=== PATIENT | female | born 1945 | race Caucasian/White ===

== ENCOUNTER → 2017-01-29 | Outpatient (CLI) | payer MEDICARE, OTHER ==
[~2017-01-29] MED LIST: ASPIR-LOW81 MG PO; ASPIRIN E.C. 8181 MG PO; AVAPRO PO; CALCIUM CARBONATE PO; CALTRATE 600 +1 TAB PO; FOSAMAX PO; HUMALOG100 U/ML SC; INSULIN HUMA100 U/ML; LANTUS100 U/ML SQ; LEVOTHYROXIN0.025 MG PO; LIDODERM PATCH TP; MEVACOR PO; NEURONTIN100 MG PO; NEURONTIN600 MG/TAB PO; PERCOCET 325 MG1 TA2 PO; SYNTHROID0.075 MG/T PO; VITAMIN D32000 IU PO; ZOFRAN ODT4 MG PO; forteo; lovastatin
== END ==
LOC: MC.RAD 09:58
DX: Z12.31 Encounter for screening mammogram for malignant neoplasm of breast (principal)

== ENCOUNTER → 2017-04-10 | Outpatient (CLI) | payer MEDICARE, OTHER | LOC: COL.VAS 09:00 | DX: I73.9 Peripheral vascular disease, unspecified (principal) ==

== ENCOUNTER → 2018-09-25 | Outpatient (CLI) | payer MEDICARE, OTHER | LOC: SUN.DIA 14:01 | DX: E10.40 Type 1 diabetes mellitus with diabetic neuropathy, unspecified (principal); E78.5 Hyperlipidemia, unspecified; I10 Essential (primary) hypertension | CPT/HCPCS: G0108 ==

== ENCOUNTER → 2019-01-03 | Outpatient (CLI) | payer MEDICARE, OTHER ==
[~2019-01-03] MED LIST changes: +AMBIEN 5MG TABLE5 MG PO; +CITRACAL + D CA1 TAB; +DOXYCYCLINE 10100 MG PO; +MEVACOR40 MG PO
== END ==
LOC: COL.CARD 12:00
DX: R42 Dizziness and giddiness (principal)

== ENCOUNTER 2019-01-05 13:09 | Emergency (ER) | payer MEDICARE, OTHER ==
[~2019-01-05] VITALS: Ht 154.9 cm; Wt 71.8 kg
[~2019-01-05 13:09] MED LIST changes: -AMBIEN 5MG TABLE5 MG PO; -CITRACAL + D CA1 TAB; -DOXYCYCLINE 10100 MG PO; -MEVACOR40 MG PO
[2019-01-05 13:35] VITALS: TEMP 98.4
[2019-01-05] MEDS ORDERED: DOXYCYCLINE 10100 MG PO (16:05)
[2019-01-05 16:14] VITALS: BP 117/68; PULSE 75
[2019-01-05] MEDS ORDERED: MEVACOR40 MG PO (16:19)
[2019-01-05] MEDS ORDERED: CITRACAL + D CA1 TAB (16:20)
[2019-01-05] MEDS ORDERED: AMBIEN 5MG TABLE5 MG PO (16:21)
== END 2019-01-05 16:40 | disposition home or self-care (01) ==
LOC: COL.ER 13:09
DX: S41.111A Laceration without foreign body of right upper arm, initial encounter (principal); E11.9 Type 2 diabetes mellitus without complications; Z79.4 Long term (current) use of insulin; Z79.82 Long term (current) use of aspirin; W22.8XXA Striking against or struck by other objects, initial encounter; Y92.009 Unspecified place in unspecified non-institutional (private) residence as the place of occurrence of the external cause

== ENCOUNTER → 2019-07-02 | Outpatient (CLI) | payer MEDICARE, OTHER ==
[~2019-07-02] MED LIST changes: +AMBIEN 5MG TABLE5 MG PO; +CITRACAL + D CA1 TAB; +DOXYCYCLINE 10100 MG PO; +MEVACOR40 MG PO
== END ==
LOC: COL.RAD 13:05
DX: G31.9 Degenerative disease of nervous system, unspecified (principal); I67.82 Cerebral ischemia; I63.81 Other cerebral infarction due to occlusion or stenosis of small artery

== ENCOUNTER → 2019-07-15 | Outpatient (CLI) | payer MEDICARE, OTHER | LOC: COL.LAB 13:22 | DX: I63.81 Other cerebral infarction due to occlusion or stenosis of small artery (principal) ==

== ENCOUNTER → 2019-11-20 | Outpatient (CLI) | payer MEDICARE, OTHER | LOC: COL.VAS 12:36 | DX: R55 Syncope and collapse (principal) ==

== ENCOUNTER 2020-01-12 07:50 | Outpatient (CLI) | payer MEDICARE, OTHER ==
[~2020-01-12] VITALS: Ht 154.9 cm; Wt 73.0 kg
[2020-01-12 08:05] VITALS: BP 161/74; PULSE 74; TEMP 97.3
[2020-01-12] MEDS ORDERED: LANTUS100 U/ML SQ (08:28)
[2020-01-12] MEDS ORDERED: NOVOLOG 100U100 U/M1 SQ (08:29)
[2020-01-12 11:10] VITALS: BP 152/86; PULSE 67
--- NOTE | 2020-01-12 11:10 | NUR ---
DC instructions reviewed with pt. She expresses understanding. INT DC'd with catheter intact, and bleeding controlled at site. She is assisted out to 's car by wheelchair with personal belongings.
== END 2020-01-12 11:10 | disposition home or self-care (01) ==
LOC: COL.CAR 07:50
DX: R55 Syncope and collapse (principal); E11.42 Type 2 diabetes mellitus with diabetic polyneuropathy; Z88.0 Allergy status to penicillin; Z88.1 Allergy status to other antibiotic agents; G31.84 Mild cognitive impairment of uncertain or unknown etiology

== ENCOUNTER → 2020-04-01 | Outpatient (CLI) | payer MEDICARE, OTHER ==
[~2020-04-01] MED LIST changes: +NOVOLOG 100U100 U/M1 SQ
== END ==
LOC: COL.RAD 10:59
DX: I67.82 Cerebral ischemia (principal); W19.XXXA Unspecified fall, initial encounter

== ENCOUNTER 2020-10-29 09:32 | Emergency (ER) | payer MEDICARE, OTHER ==
[~2020-10-29] VITALS: Ht 152.4 cm; Wt 72.7 kg
[2020-10-29 09:39] VITALS: TEMP 97.8
[2020-10-29] MEDS ORDERED: PERCOCET 325 MG1 TA2 PO (10:29)
[2020-10-29 11:05] VITALS: BP 138/67; PULSE 83
== END 2020-10-29 11:05 | disposition home or self-care (01) ==
LOC: COL.ER 09:32
DX: S52.601A Unspecified fracture of lower end of right ulna, initial encounter for closed fracture (principal); S52.501A Unspecified fracture of the lower end of right radius, initial encounter for closed fracture; I10 Essential (primary) hypertension; E78.5 Hyperlipidemia, unspecified; E11.40 Type 2 diabetes mellitus with diabetic neuropathy, unspecified; Z79.4 Long term (current) use of insulin; Z79.899 Other long term (current) drug therapy; W06.XXXA Fall from bed, initial encounter

== ENCOUNTER 2021-04-24 17:34 | Inpatient (IN) | payer MEDICARE, OTHER ==
[~2021-04-24] VITALS: Ht 152.4 cm; Wt 73.0 kg
[2021-04-24 18:21] LABS: HEMOGLOBIN 12.7 g/dl (12.5-16.0); MEAN CELL VOLUME 92 fl (80.0-100.0); MEAN CORPUSCULAR HEMOGLOBIN 32 pg (27-31); MEAN CORPUSCULAR HGB CONC 35 g/dl (33.0-37.0); MEAN PLATELET VOLUME 10.3 fl (7.4-10.4); PLATELET COUNT 216 K/mm3 (130-400); RED BLOOD COUNT 3.99 M/mm3 (4.10-5.30); REDCELL DISTRIBUTION WIDTH-CV 12.2 % (11.5-14.5)
[2021-04-24 18:23] LABS: HEMATOCRIT 36.6 % (37.0-47.0)
[2021-04-24 18:28] LABS: INR 1.2 (0.8-3.0); PROTHROMBIN TIME 12.9 SECONDS (9.7-12.8)
[2021-04-24 18:39] LABS: ALBUMIN 3.7 gm/dL (3.4-4.8); BILIRUBIN,TOTAL 0.3 mg/dL (0.2-1.2); CALCIUM 9.2 mg/dL (8.4-10.2); CREATININE, serum 0.83 mg/dL (0.57-1.11); POTASSIUM 3.7 mmol/L (3.5-4.5); TOTAL PROTEIN 7.3 gm/dL (6.2-8.1)
[2021-04-24 18:45] LABS: TROPONIN-I 0.014 ng/mL (0.00-0.033)
[2021-04-24 18:46] LABS: BAND 5 % (0-10); BASOPHIL 1 % (0-2); LYMPHOCYTE 17 % (20.0-51.0); NEUTROPHILS 59 % (42.0-75.2); PLATELET ESTIMATE NORMAL (NORMAL)
[2021-04-24 21:09] LABS: COLLECTION METHOD CLEAN CATCH
[2021-04-24 21:28] LABS: PH 5 (5-8); SQUAMOUS EPITHELIAL 0-2 /hpf (0-10); URINE APPEARANCE Hazy (CLEAR/HAZY); URINE BACTERIA Rare /hpf (NONE SEEN); URINE BILIRUBIN Negative (NEGATIVE); URINE BLOOD 1+ (NEGATIVE); URINE COLOR Yellow (YELLOW); URINE GLUCOSE 1+ (NEGATIVE); URINE KETONE Negative (NEGATIVE); URINE LEUKOCYTE ESTERASE 1+ (NEGATIVE); URINE NITRATE Negative (NEGATIVE); URINE PROTEIN(semi-quant) Negative (NEGATIVE); URINE RBC 0-2 /hpf (0-2); URINE UROBILINOGEN Negative (NEGATIVE)
[2021-04-24] MEDS ORDERED: ARICEPT10 MG PO (22:22)
[2021-04-24] MEDS ORDERED: AMBIEN 10MG10 MG PO (22:22)
[2021-04-24] MEDS ORDERED: AVAPRO TAB150 MG/TAB PO (22:27)
[2021-04-24 23:24] LABS: C-REACTIVE PROTEIN 4.1 mg/dL (0.00-0.50); MAGNESIUM 1.9 mg/dL (1.6-2.6)
[2021-04-24 23:41] VITALS: BP 141/69; PULSE 90; TEMP 98.5
[2021-04-24 23:45] LABS: TSH w REFLEX 2.248 uIU/mL (0.350-4.940)
[2021-04-25 03:59] VITALS: BP 131/57; PULSE 84; TEMP 99.1
--- NOTE | 2021-04-25 06:50 | NUR ---
PT ARRIVED TO THE MEDICAL UNIT AT 2330HRS. PT A&O X4; BUT SEEMED TO HAVE SOME CONFUSION TO HER HOME MEDS AND A HARD TIME REMEMBERING HER 'S PHONE NUMBER. PT VERY TIRED WHEN SHE GOT TO THE UNIT. ADMISSION ASSESSMENTS COMPLETE. PT DENIED PAIN, PALPITATIONS, SOB OR DIZZINESS AT THIS TIME. PT RESTING IN BED. PT STATES SHE HAS NO OTHER NEEDS AT THIS TIME. CALL LIGHT WITHIN REACH.
[2021-04-25 06:58] LABS: HEMOGLOBIN 11.3 g/dl (12.5-16.0); MEAN CELL VOLUME 92 fl (80.0-100.0); MEAN CORPUSCULAR HEMOGLOBIN 32 pg (27-31); MEAN CORPUSCULAR HGB CONC 34 g/dl (33.0-37.0); MEAN PLATELET VOLUME 10.6 fl (7.4-10.4); PLATELET COUNT 185 K/mm3 (130-400); RED BLOOD COUNT 3.58 M/mm3 (4.10-5.30); REDCELL DISTRIBUTION WIDTH-CV 12.3 % (11.5-14.5)
[2021-04-25 07:08] LABS: BILIRUBIN,TOTAL 0.3 mg/dL (0.2-1.2); CALCIUM 8.4 mg/dL (8.4-10.2); CREATININE, serum 0.74 mg/dL (0.57-1.11); POTASSIUM 3.6 mmol/L (3.5-4.5)
[2021-04-25 08:09] VITALS: BP 134/62; PULSE 90; TEMP 99.5
[2021-04-25 08:17] LABS: BAND 1 % (0-10); EOSINOPHIL 1 % (0-4); LYMPHOCYTE 21 % (20.0-51.0); NEUTROPHILS 57 % (42.0-75.2)
[2021-04-25 08:18] LABS: PLATELET ESTIMATE NORMAL (NORMAL)
[2021-04-25 12:37] VITALS: BP 143/71; PULSE 88; TEMP 99.6
--- NOTE | 2021-04-25 13:17 | NUR ---
The patient is COVID positive. MARGARETTE attempted to contact the patient to discuss discharge plan. The patient did not answer. MARGARETTE then attempted to contact the patient's , Nick (ph#[phone]), to complete intake. He did not answer. MARGARETTE left him a voicemail. OT is recommending IPR. Dr. Gonzales notified MARGARETTE that he has placed a IPR consult. Awaiting screen.
[2021-04-25 17:10] VITALS: BP 132/59; PULSE 81; TEMP 98.7
[2021-04-25 20:32] VITALS: BP 132/55; PULSE 83; TEMP 99.1
[2021-04-25 23:12] VITALS: BP 113/76; PULSE 78; TEMP 99.1
--- NOTE | 2021-04-25 23:15 | NUR ---
PT IS PLEASANT AND COOPERATIVE. TOOK ALL MEDICATIONS, STATED SHE FELT A BIT WOOZY AND WOULD LIKE TO CHECK BLOOD SUGAR AGAIN. BLOOD SUGAR WAS ORIGINALLY 129, WHEN THIS RN RECHECKED BGS IT HAD DROPPED TO 55. GAVE SOME ORANGE JUICE AND CALLED ROCKY HOOKER. ROCKY HOOKER GAVE ORDER FOR D5NS TO RUN AT 60 ML/HR. THIS RN ATTEMPTED TO START BUT IV WAS NOT USABLE. HAD HOUSE START NEW IV SITE. GOT D5 RUNNING AT 60 ML/HR. RECHECK OF BGS CAME BACK AT 95. WILL CONTINUE TO MONITOR. THIS RN GOT UPDATE FROM DAUGHTER IN LAW, RYAN, WHO STATES SHE WORKS IN HOSPITALS [place]. HER AND HER , REN WHO IS PATIENT'S SON ARE CONCERNED ABOUT CARE BEING GIVEN BY JANICE. DAUGHTER IN LAW STATES THAT THINKS HE IS DOING JUST FINE MANAGING HER DIABETES AND WAS AGITATED AT THE FACT THAT HE COULD NOT GET AN UPDATE DURING SHIFT CHANGE. (PT CALLED AT 1840 FOR UPDATE) THIS RN ATTEMPTED TO CONTACT JANICE AT APPROXIMATELY 2000. THERE WAS NO ANSWER. DAUGHTER IN LAW STATED THAT JANICE WAS CONSIDERING DRIVING TO HOSPITAL AND MAKING PT GO HOME WITH HIM IF SHE IS DOING BETTER. DAUGHTER IN LAW TOLD HIM THAT HE SHOULD WAIT TO MAKE SURE SHE IS OK, AND THAT HE JUST TESTED POSITIVE FOR COVID AND IS CONSIDERED STILL CONTAGIOUS AND THAT HE SHOULD QUARANTINE. DAUGHTER IN LAW STATED THAT THE CONVERSATION DID NOT GO WELL. DAUGHTER IN LAW PHONE NUMBER IS [phone]. STATES THAT IF SHE DOES NOT ANSWER THAT SHE WILL CALL BACK SOON SHE CAN, BUT MAY TAKE FEW MINUTES DUE WORK AND THAT REN, PT SON, IS A ASSEMBLY CLEANER AND HARDER TO GET A HOLD OF.
--- NOTE | 2021-04-26 00:39 | NUR ---
THIS RN CONTACTED ROCKY HOOKER ABOUT BGS OF 95 AT MIDNIGHT CHECKS. MORRO STATED TO KEEP PT ON D5NS AT 60ML/HR. WILL KEEP PATIENT ON Q4 BLOOD GLUCOSE CHECKS.
[2021-04-26 04:01] VITALS: BP 135/47; PULSE 79; TEMP 97.4
--- NOTE | 2021-04-26 04:22 | NUR ---
THIS RN GOT 0400 BGS OF 262 FOR PATIENT. THIS RN CALLED ROCKY HOOKER ABOUT RESULTS. D5 FLUID D/C. THIS RN REMOVED FLUIDS IMMEDIATELY.
--- NOTE | 2021-04-26 06:18 | NUR ---
PT HAD AN UNEVENTFUL NIGHT, PT SLEPT ALL NIGHT WITH NO COMPLAINTS. PT BLOOD SUGAR INCREASED FROM 55 TO 95 TO 262. D5NS DISCONTINUED. WILL CONTINUE TO MONITOR. PT STATES THAT HER BLOOD SUGAR IS VERY SENSITIVE. WHEN TAKING MORNING MEDS, PT SAT UP BUT COULD NOT REMAIN UPRIGHT IN SITTED POSITION TO TAKE MEDICATIONS, PT LEANED BACKWARDS AND NEEDED HELP GETTING BACK IN UPRIGHT POSITION. CALL LIGHT IN REACH, NO OTHER NEEDS AT THIS TIME.
[2021-04-26 07:50] LABS: HEMOGLOBIN 11.7 g/dl (12.5-16.0); MEAN CELL VOLUME 94 fl (80.0-100.0); MEAN CORPUSCULAR HEMOGLOBIN 32 pg (27-31); MEAN CORPUSCULAR HGB CONC 34 g/dl (33.0-37.0); MEAN PLATELET VOLUME 10.7 fl (7.4-10.4); PLATELET COUNT 165 K/mm3 (130-400); RED BLOOD COUNT 3.63 M/mm3 (4.10-5.30); REDCELL DISTRIBUTION WIDTH-CV 12.5 % (11.5-14.5)
[2021-04-26 07:51] LABS: ALBUMIN 2.9 gm/dL (3.4-4.8); BILIRUBIN,TOTAL 0.2 mg/dL (0.2-1.2); CALCIUM 8.6 mg/dL (8.4-10.2); CREATININE, serum 0.81 mg/dL (0.57-1.11); POTASSIUM 4.4 mmol/L (3.5-4.5); TOTAL PROTEIN 5.7 gm/dL (6.2-8.1)
[2021-04-26 07:53] LABS: HEMATOCRIT 34.2 % (37.0-47.0)
[2021-04-26 08:59] VITALS: BP 113/76; PULSE 75; TEMP 98.6
[2021-04-26 09:10] LABS: BAND 13 % (0-10); LYMPHOCYTE 31 % (20.0-51.0); NEUTROPHILS 38 % (42.0-75.2); PLATELET ESTIMATE NORMAL (NORMAL)
[2021-04-26] MEDS ORDERED: RT Albuterol HFA MDI IH (11:06)
[2021-04-26] MEDS ORDERED: NOVOLOG 100U100 U/M1 SQ (11:07)
[2021-04-26] MEDS ORDERED: LEVEMIR100 U/ML SQ (11:07)
[2021-04-26] MEDS ORDERED: NEURONTIN300 MG/CAP PO (11:07)
[2021-04-26] MEDS ORDERED: OMNICEF 300MG300 MG PO (11:16)
--- NOTE | 2021-04-26 11:34 | NUR ---
Magaly, with IPR, reports that she has accepted the patient. The patient is to discharge today, 04/26, to [facility]. MARGARETTE contacted and updated the patient's , Nick. Nick is in agreement to the plan. He had no other questions for SW. No additional needs at this time.
[2021-04-26 12:03] VITALS: BP 104/51; PULSE 77; TEMP 98.5
== END 2021-04-26 14:00 | DRG 178 ==
LOC: COL.ER 17:34 → MEDICAL 21:51
PROVIDERS: Nurse Practitioner Family; Physician Assistant; ADMIT Internal Medicine
DX: U07.1 COVID-19 (principal); N39.0 Urinary tract infection, site not specified; I10 Essential (primary) hypertension; I49.3 Ventricular premature depolarization; I25.10 Atherosclerotic heart disease of native coronary artery without angina pectoris; E10.40 Type 1 diabetes mellitus with diabetic neuropathy, unspecified; E10.43 Type 1 diabetes mellitus with diabetic autonomic (poly)neuropathy; E10.649 Type 1 diabetes mellitus with hypoglycemia without coma; E10.319 Type 1 diabetes mellitus with unspecified diabetic retinopathy without macular edema; K31.84 Gastroparesis; E87.6 Hypokalemia; M81.0 Age-related osteoporosis without current pathological fracture; E03.9 Hypothyroidism, unspecified; E78.5 Hyperlipidemia, unspecified; R53.81 Other malaise; H40.9 Unspecified glaucoma; Z79.82 Long term (current) use of aspirin; Z79.4 Long term (current) use of insulin; Z86.73 Personal history of transient ischemic attack (TIA), and cerebral infarction without residual deficits; Z88.0 Allergy status to penicillin; Z88.5 Allergy status to narcotic agent; F03.90 Unspecified dementia, unspecified severity, without behavioral disturbance, psychotic disturbance, mood disturbance, and anxiety
CPT/HCPCS: 99232-AI; 99239; J0696; J1610; J1650; J1815; J7042; J7120

== ENCOUNTER 2021-04-26 10:50 | Inpatient (IN) | payer MEDICARE, OTHER ==
[~2021-04-26] VITALS: Ht 152.4 cm; Wt 72.1 kg
[~2021-04-26 10:50] MED LIST changes: +AMBIEN 10MG10 MG PO; +ARICEPT10 MG PO; +AVAPRO TAB150 MG/TAB PO
[2021-04-26] MEDS ORDERED: RT Albuterol HFA MDI IH (11:06)
[2021-04-26] MEDS ORDERED: LEVEMIR100 U/ML SQ (11:07)
[2021-04-26] MEDS ORDERED: NOVOLOG 100U100 U/M1 SQ (11:07)
[2021-04-26] MEDS ORDERED: NEURONTIN300 MG/CAP PO (11:07)
[2021-04-26] MEDS ORDERED: OMNICEF 300MG300 MG PO (11:16)
[2021-04-26 17:23] VITALS: BP 129/55; PULSE 82; TEMP 97.6
[2021-04-26 20:28] VITALS: BP 138/50; PULSE 83; TEMP 99.2
[2021-04-27 00:43] VITALS: BP 140/54; PULSE 86; TEMP 99.7
[2021-04-27 04:46] VITALS: BP 147/55; PULSE 85; TEMP 98.9
--- NOTE | 2021-04-27 06:27 | NUR ---
PT HAD AN UNEVENTFUL NIGHT. PT SLEPT ALL NIGHT, STILL ON RA. PT WENT TO RESTROOM, NO SIGNS OF CONTINUED BLEEDING, PT DENIES PAIN. CALL LIGHT IN REACH. ALL NEEDS MET.
[2021-04-27 08:16] VITALS: BP 156/64; PULSE 86; TEMP 99.5
--- NOTE | 2021-04-27 09:23 | NUR ---
PT PLEASANT, AOX4, SPEECH THERAPY REPORTS PT SEEING "LOTS OF PEOPLE IN MY ROOM CLEANING UP AND THROWING THINGS AWAY", THIS IS AN UNLIKELY EVENT. PT REPORTS PAIN 5/10 IN BLE AND DESCRIBES IT NEUROPATHY PAIN, MEDICATIONS GIVEN, ASSESSMENT PERFORMED, UPDATED ON PT STATUS, BREAKFAST BROUGHT IN, NO OTHER NEEDS
--- NOTE | 2021-04-27 13:05 | NUR ---
HECTOR HIDALGO NOTIFIED OF 409 BS, ORDERED TO GIVE 10 UNITS REGULAR INSULIN IV AND RECHECK IN 30MIN AND HOLD SLIDING SCALE. INSULIN GIVEN AND RECHECK SUGAR WAS 339, HECTOR HIDALGO UPDATED AND DARLENE ORDERED TO GIVE SLIDING SCALE WITH PT LUNCH.
--- NOTE | 2021-04-27 13:11 | NUR ---
LEILA PT'S SON UPDATED ON PT STATUS.
--- NOTE | 2021-04-27 14:01 | NUR ---
Reviewed Team conference note w/ pt. Told her since she had just admitted yesterday afternoon & therapists were working on doing their evaluations, there was not alot of information. Informed her the team will evaluate again next Sunday. She stated she understood & agreed w/ the plan.
--- NOTE | 2021-04-27 16:17 | NUR ---
Attempt made to contact the patient's Nick via phone and was unsuccessful. Message left. Second attempt to speak with the patient via her room phone and was unsuccessful. SW will attempt to contact the patient again tomorrow to complete intake.
[2021-04-27 17:05] VITALS: BP 127/61; PULSE 80; TEMP 98.6
--- NOTE | 2021-04-27 17:48 | NUR ---
INC BS DURING THE DAY, PT AOX4, MEDICATIONS GIVEN, UNEVENTFUL SHIFT OTHER THAN INC SUGARS, DENIES PAIN, ON RA, NO OTHER NEEDS
--- NOTE | 2021-04-27 23:29 | NUR ---
PT IS LAYING IN BED, ASSESSMENT COMPLETE. PT ALERT AND ORIENTATED. PT INQUIRED INTREST IN INSULIN LEVELS AND MEDICATIONS GIVEN. CALL LIGHT IN REACH. ALL NEEDS MET.
[2021-04-28 05:10] VITALS: BP 140/55; PULSE 81; TEMP 99
[2021-04-28 05:42] LABS: BASO % 0.3 % (0.0-2.0); EOS # 0.1 K/mm3 (0.0-0.7); EOS % 1.8 % (0.0-4.0); GRAN # 1.8 K/mm3 (1.4-6.5); GRAN % 52.5 % (42.2-75.2); HEMOGLOBIN 11.5 g/dl (12.5-16.0); LYMPH # 1.1 K/mm3 (1.2-3.4); LYMPH % 32.5 % (20.0-51.0); MEAN CELL VOLUME 94 fl (80.0-100.0); MEAN CORPUSCULAR HEMOGLOBIN 32 pg (27-31); MEAN CORPUSCULAR HGB CONC 34 g/dl (33.0-37.0); MEAN PLATELET VOLUME 10.5 fl (7.4-10.4); MONO # 0.4 K/mm3 (0.1-0.6); MONO % 12.9 % (1.7-9.3); PLATELET COUNT 165 K/mm3 (130-400); RED BLOOD COUNT 3.62 M/mm3 (4.10-5.30)
--- NOTE | 2021-04-28 05:47 | NUR ---
PT HAD AN UNEVENTFUL NIGHT. PT REMAINED ON ROOM AIR, SLEPT ALL NIGHT. DENIES PAIN, DID NOT WANT TO ATTEMPT MOVEMENT FOR IPR QUALITY MEASURES, STATED SHE WAS TOO SLEEPY. PT REQUESTED LIGHTS OFF AND BE ABLE TO RETURN TO SLEEP. CALL LIGHT IN REACH, ALL NEEDS MET.
[2021-04-28 06:01] LABS: CALCIUM 8.6 mg/dL (8.4-10.2); CREATININE, serum 0.82 mg/dL (0.57-1.11); MAGNESIUM 1.7 mg/dL (1.6-2.6); POTASSIUM 4.2 mmol/L (3.5-4.5)
--- NOTE | 2021-04-28 09:44 | NUR ---
PT PLEASANT, AOX4, BREAKFAST BROUGHT IN FOR PT, MEDICATIONS GIVEN, ASSESSMENT PERFORMED, MEDICATIONS GIVEN, NO OTHER NEEDS
--- NOTE | 2021-04-28 14:00 | NUR ---
Due to patient being Covid + patient was contacted via room phone to complete intake. Patient reports that she lives at home with her Nick ([phone]). Patient reports that she is fully independent with her activities of daily living at home and does not utilize any DME to assist with mobility. Patient reports to no oxygen needs at home. PCP is Dr. Mata and she utilizes [facility] for medication needs. Patient states she does have a DPOA-HC established and that Dr. Mata has a copy of it on file. Permission was given for me to call and request a copy of it. Patient is planning on returning home once ready for discharge. Patient reports that her Nick is doing ok at home. Educated the patient on the role of social media community manager.Dr. Mata's office is contacted an agree's to fax over a copy of the patient's DPOA-HC form. Discharge plan: Home pending PT/OT rec's
--- NOTE | 2021-04-28 14:57 | NUR ---
PT BS ELEVATED, PA NOTIFIED, ORDERED TO GIVE 10 UNITS IV INSULIN, EDUCATED PT ON DECISION AND MEDICATION GIVEN, WILL REASSESS IN 30MIN
[2021-04-28 15:47] VITALS: BP 130/61; PULSE 88; TEMP 98.4
--- NOTE | 2021-04-28 17:15 | NUR ---
PT PLEASANT, AOX4, INVOLVED WITH DISCUSSION OF BS, PT WORKING [employer]ER[facility] DURING THE DAY, EATING WELL, DENIES S/S OF COVID, NO OTHER NEEDS
--- NOTE | 2021-04-28 23:52 | NUR ---
Patient assessed around 2024. Had gotten up to go to the bathroom on own when bed alarm sounded. Denies pain and discomfort. Denies SOB and dyspnea. On room air. LS CTA. Peripheral INT to right forearm. Assisted patient with calling . Voices no further questions, needs, or concerns at this time. In bed with call light within reach. Bed alarm on.
[2021-04-29] VITALS (7 sets, daily range): BP systolic 98–146; BP diastolic 46–62; PULSE 55–90; TEMP 98.5–101.3
--- NOTE | 2021-04-29 05:39 | NUR ---
Patient has denied pain and discomfort this shift. Unsteady this morning, used bedside commode. Voices no questions, needs, or concerns at this time. In bed with call light within reach. Bed alarm on.
--- NOTE | 2021-04-29 08:00 | NUR ---
BREAKFAST BROUGHT IN WITH PT, PT APPEARS DROWSY, AOX3, PT COULD NOT IDENTIFY LOCATION WITHOUT PROMPTING, PT ASSESSMENT PERFORMED, PT UL COARSE, PT CHOKED ON PILLS WHEN TAKING THEM, RECOVERED, NO OTHER NEEDS
--- NOTE | 2021-04-29 09:30 | NUR ---
GAGE ROSENBERG CALLED FOR ME INTO PT ROOM, PT ON SHOWER BENCH, PALE, CLAMMY, RESPONSIVE TO PHYSICAL STIMULATION, VITALS OBTAINED, BS OBTAINED, PT THEN HAD X3 EMESIS YELLOW IN COLOR, REPORTING NAUSEA AND DIZZINESS. PT LETHARGIC BUT ANSWERED ORIENTATION QUESTIONS APPROPRIATELY AND REQUIRED MULTIPLE PROMPTS TO ANSWER QUESTIONS, BP LOW, SHAREE HIDALGO NOTIFIED, PULSE RATE ON DYNAMAP BEGAN TO READ HR FROM 25-30, CAROTID PULSE PALPATED, DYNAMAP HR INC TO 55 AND PT BECAME MORE ALERT, SHAREE HIDALGO CAME IN TO ASSESS PT, BOLUS ORDERED AND STARTED WHILE PT ON SHOWER BENCH, ZOFRAN ORDERED AND GIVEN, PT THEN REPORTED NEEDING TO HAVE A BM, ASSISTED TO TOILET, AMBULATION CONSISTENT WITH PAST AMBULATION, PT DID NOT HAVE BM, PT ASSISTED BACK TO BED WITH WALKER. BOLUS FINISHED INFUSING, BP REASSESSED AND HIGHER, SHAREE HIDALGO NOTIFIED. PT STILL DROWSY BUT AROUSES TO VERBAL STIMULATION/COMMANDS. NO NEW ORDERS AT THIS TIME.
[2021-04-29 11:00] LABS: BASO % 0.3 % (0.0-2.0); EOS % 0.3 % (0.0-4.0); GRAN # 2.4 K/mm3 (1.4-6.5); GRAN % 73.3 % (42.2-75.2); HEMOGLOBIN 11.9 g/dl (12.5-16.0); LYMPH # 0.5 K/mm3 (1.2-3.4); LYMPH % 15.8 % (20.0-51.0); MEAN CELL VOLUME 91 fl (80.0-100.0); MEAN CORPUSCULAR HEMOGLOBIN 32 pg (27-31); MEAN CORPUSCULAR HGB CONC 35 g/dl (33.0-37.0); MEAN PLATELET VOLUME 10.7 fl (7.4-10.4); MONO # 0.3 K/mm3 (0.1-0.6); PLATELET COUNT 161 K/mm3 (130-400); RED BLOOD COUNT 3.77 M/mm3 (4.10-5.30)
[2021-04-29 11:01] LABS: HEMATOCRIT 34.4 % (37.0-47.0)
[2021-04-29 11:16] LABS: BILIRUBIN,TOTAL 0.4 mg/dL (0.2-1.2); CALCIUM 8.2 mg/dL (8.4-10.2); CREATININE, serum 0.91 mg/dL (0.57-1.11); MAGNESIUM 1.7 mg/dL (1.6-2.6); POTASSIUM 4.1 mmol/L (3.5-4.5); TOTAL PROTEIN 6.3 gm/dL (6.2-8.1)
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
--- NOTE | 2021-04-29 12:10 | NUR ---
CT TAKING PT OFF FLOOR FOR HEAD CT VIA WHEELCHAIR
--- NOTE | 2021-04-29 12:33 | NUR ---
PT BACK IN ROOM AND SLEEPING IN HER BED
--- NOTE | 2021-04-29 14:14 | NUR ---
Admission QIM scores were reviewed by the team. Code of 6 chosen for eating was determined by team discussion to be the most usual performance for this patient during the assessment period. Code of 3 for sit to stand was determined by team discussion to be the most usual performance for this patient during the assessment period.--Magaly Leonard, PD
--- NOTE | 2021-04-29 18:23 | NUR ---
PT PLEASANT, AOX4, LETHARGIC MAJORITY OF TODAY, MORE ALERT AT DINNER TIME, MEDICATIONS GIVEN, INSULIN GIVEN, NO OTHER NEEDS
--- NOTE | 2021-04-29 23:26 | NUR ---
Patient assessed around 2019. Alert and oriented at this time, but does occasionally have confusion, but easily redirected. Denies having pain and discomfort. Temp 101.3. Given PRN APAP, recheck 100.5. Updated ROCKY Osuna. Patient resting in bed with call light within reach. Bed alarm on.
[2021-04-30] VITALS (7 sets, daily range): BP systolic 117–147; BP diastolic 43–66; PULSE 76–103; TEMP 98.5–102.1
[2021-04-30 00:04] LABS: BASO % 0.3 % (0.0-2.0); EOS % 0.3 % (0.0-4.0); GRAN % 57.5 % (42.2-75.2); HEMOGLOBIN 10.7 g/dl (12.5-16.0); LYMPH # 1.1 K/mm3 (1.2-3.4); MEAN CELL VOLUME 91 fl (80.0-100.0); MEAN CORPUSCULAR HEMOGLOBIN 31 pg (27-31); MEAN CORPUSCULAR HGB CONC 35 g/dl (33.0-37.0); MEAN PLATELET VOLUME 10.5 fl (7.4-10.4); MONO # 0.4 K/mm3 (0.1-0.6); MONO % 10.6 % (1.7-9.3); PLATELET COUNT 158 K/mm3 (130-400); RED BLOOD COUNT 3.41 M/mm3 (4.10-5.30); REDCELL DISTRIBUTION WIDTH-CV 11.9 % (11.5-14.5)
[2021-04-30 00:06] LABS: HEMATOCRIT 30.9 % (37.0-47.0)
[2021-04-30 00:20] LABS: CREATININE, serum 0.73 mg/dL (0.57-1.11); POTASSIUM 3.9 mmol/L (3.5-4.5)
--- NOTE | 2021-04-30 04:36 | NUR ---
Patient continues on room air. Voices no questions, needs, or concerns at this time. In bed with call light within reach.
--- NOTE | 2021-04-30 18:28 | NUR ---
PT A&O X2 THIS SHIFT. PT REQUIRES MANY VERBAL QUES TO COMPLETE TASKS. PT RECIEVED DOSE OF TYLENOL THIS EVENING FOR TEMP OF 101. PT REQUIRED 2:1 MAX ASSIST TO TRANSFER BACK TO BED. PT ABLE TO EAT MEALS AFTER SET UP. MRI ORDERED FOR SUNDAY. BLOOD CX PENDING.
--- NOTE | 2021-04-30 23:41 | NUR ---
Patient assessed around 1999. Alert and oriented at time of assessment. Answered all questions corretly without prompting. Does get confused at times. Denies having pain and discomfort. Periphearal IV to right forearm. IV fluids running per orders. Line kept kinking, so new IV started to left forearm. Voices no questions, needs, or concerns at this time. In bed with call light within reach. Bed alarm on.
[2021-05-01 01:02] VITALS: BP 155/59; PULSE 89; TEMP 102.5
[2021-05-01 04:56] VITALS: BP 144/44; PULSE 74; TEMP 98.9
--- NOTE | 2021-05-01 06:07 | NUR ---
Patient did have fever again during the night. Given PRN APAP which was effective. Urine sample obtained and sent to lab. Voices no questions, needs, or concerns at this time. In bed with call light within reach.
--- NOTE | 2021-05-01 07:27 | NUR ---
Noticed O2 was in the 70s per documentation earlier this am. Pt is on room air and O2 is above 90%
[2021-05-01 08:12] VITALS: BP 168/63; PULSE 79; TEMP 98.4
[2021-05-01 09:52] LABS: BASO % 0.4 % (0.0-2.0); EOS % 0.2 % (0.0-4.0); GRAN % 70.7 % (42.2-75.2); HEMOGLOBIN 11.9 g/dl (12.5-16.0); LYMPH # 1.1 K/mm3 (1.2-3.4); MEAN CELL VOLUME 93 fl (80.0-100.0); MEAN CORPUSCULAR HEMOGLOBIN 32 pg (27-31); MEAN CORPUSCULAR HGB CONC 34 g/dl (33.0-37.0); MEAN PLATELET VOLUME 10.9 fl (7.4-10.4); MONO # 0.5 K/mm3 (0.1-0.6); MONO % 8.3 % (1.7-9.3); PLATELET COUNT 166 K/mm3 (130-400); RED BLOOD COUNT 3.78 M/mm3 (4.10-5.30); REDCELL DISTRIBUTION WIDTH-CV 12.2 % (11.5-14.5)
--- NOTE | 2021-05-01 10:00 | NUR ---
Pt doing okay this morning. She is incontinent of urine. I asked her if she knew when she needs to go and she said she tries to know. Pt has no pain complaints. She continues to be on room air. Pt denies any needs
[2021-05-01 10:03] LABS: HEMATOCRIT 35.1 % (37.0-47.0)
[2021-05-01 10:10] LABS: CALCIUM 8.2 mg/dL (8.4-10.2); CREATININE, serum 0.75 mg/dL (0.57-1.11); POTASSIUM 4.1 mmol/L (3.5-4.5)
[2021-05-01 11:36] VITALS: BP 140/42; PULSE 73; TEMP 99.2
[2021-05-01 11:43] LABS: COLLECTION METHOD CLEAN CATCH
[2021-05-01 12:10] LABS: PH 6 (5-8); SQUAMOUS EPITHELIAL 0-2 /hpf (0-10); URINE APPEARANCE Clear (CLEAR/HAZY); URINE BACTERIA Rare /hpf (NONE SEEN); URINE BILIRUBIN Negative (NEGATIVE); URINE BLOOD Negative (NEGATIVE); URINE COLOR Straw (YELLOW); URINE GLUCOSE 1+ (NEGATIVE); URINE KETONE Negative (NEGATIVE); URINE LEUKOCYTE ESTERASE Negative (NEGATIVE); URINE NITRATE Negative (NEGATIVE); URINE PROTEIN(semi-quant) Negative (NEGATIVE); URINE RBC 0-2 /hpf (0-2); URINE UROBILINOGEN Negative (NEGATIVE)
--- NOTE | 2021-05-01 16:17 | NUR ---
Visited with step daughter regarding pt condition, gave an update. Discussed pts , Nick, and him wanting to bring [place] home. Step daughter voiced concerns about her going home too soon and Nick being able to care for her. Informed her that I would pass on the conerns to social work
[2021-05-01 16:30] VITALS: BP 146/52; PULSE 89; TEMP 99.6
--- NOTE | 2021-05-01 18:34 | NUR ---
Pt was transferred to another room due to pt admissions. Called pts son and gave pt the phone so that they can talk. Pt seemed somewhat lethargic and was not able to carry on a conversation with him. Asked pt if she felt ok and she responded with yes and then went back to what appeared to be sleeping. Stated pts name and she responded right away and encouraged her to eat some of her dinner. Pt did start eating at this time
[2021-05-01 20:14] VITALS: BP 116/47; PULSE 86; TEMP 99.3
--- NOTE | 2021-05-01 22:30 | NUR ---
this RN received a call from pt's [id number], Tahmina, at 215, she states that her and her spoke with pt early in the evening and they feel pt is "not right, we think she's had a stroke", this RN had just completed assessment of pt @2129, pt is not responding to questions, alert to self only, only answers yes or no questions, and knows her date of , left eye droopy, pupil mid dilated and sluggish, after speaking with Tahmina, notified ROCKY Esteves of family and RN's concerns, CT of head ordered and came to examine pt, pt was a little more responsive to Thao, but required her to repeat commands several times before responded. See Thao's note for further info, she notified family and updated.
[2021-05-02] VITALS (7 sets, daily range): BP systolic 131–160; BP diastolic 48–72; PULSE 69–77; TEMP 97.2–99.3
--- NOTE | 2021-05-02 06:53 | NUR ---
pt is responding more appropriately this am, quickly answers questions, able to turn self side to side in bed. low grade temps this shift, BGM 99, 84. able to take meds by mouth 1 or 2 at a time, needs direction to swallow at times. incontinent of urine x2, turned q2.
--- NOTE | 2021-05-02 07:40 | NUR ---
PT PLEASANT, AOX3, COULD NOT NAME LOCATION BUT KNEW SHE WAS IN [place], PT ALERT, OBEYED COMMANDS, R REGULATOR PIN INSERTER SLIGHTLY WEAKER THAN LEFT, PT DENIES PAIN, PT ASSESSMENT PERFORMED, IV FLUSHED WELL, MEDICATIONS GIVEN, PT CHOKED ON PILLS WITH WATER, NO OTHER NEEDS
[2021-05-02 08:25] LABS: HEMOGLOBIN 11.9 g/dl (12.5-16.0); MEAN CELL VOLUME 91 fl (80.0-100.0); MEAN CORPUSCULAR HEMOGLOBIN 32 pg (27-31); MEAN CORPUSCULAR HGB CONC 35 g/dl (33.0-37.0); MEAN PLATELET VOLUME 10.8 fl (7.4-10.4); PLATELET COUNT 171 K/mm3 (130-400); RED BLOOD COUNT 3.74 M/mm3 (4.10-5.30); REDCELL DISTRIBUTION WIDTH-CV 12.3 % (11.5-14.5)
[2021-05-02 08:35] LABS: HEMATOCRIT 34.2 % (37.0-47.0)
[2021-05-02 08:37] LABS: CALCIUM 8.2 mg/dL (8.4-10.2); CREATININE, serum 0.69 mg/dL (0.57-1.11); POTASSIUM 3.9 mmol/L (3.5-4.5)
[2021-05-02 08:59] LABS: BAND 5 % (0-10); EOSINOPHIL 1 % (0-4); NEUTROPHILS 63 % (42.0-75.2)
[2021-05-02 09:00] LABS: LYMPHOCYTE 23 % (20.0-51.0)
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
--- NOTE | 2021-05-02 17:47 | NUR ---
PT PLEASANT, INT CONFUSION DURING THE SHIFT, UNEVENTFUL SHIFT OVERALL
[2021-05-03 04:33] VITALS: BP 132/69; PULSE 74; TEMP 98.9
[2021-05-03 08:00] VITALS: BP 136/66; PULSE 67; TEMP 97.6
--- NOTE | 2021-05-03 09:00 | NUR ---
PT PLEASANT, AOX4, DENIES PAIN, UNSTEADY ON FEET, INCONTINENT AND UNABLE TO VERBALIZE INCONTINENCE, ASSESSMENT PERFORMED, OT IN ROOM CHANGING SHEETS, PT TOOK PILLS 2 AT A TIME AND DID NOT CHOKE OR COUGH. NO OTHER NEEDS
[2021-05-03 11:32] VITALS: BP 144/63; PULSE 72; TEMP 97.6
[2021-05-03 16:41] VITALS: BP 156/60; PULSE 80; TEMP 98.3
--- NOTE | 2021-05-03 17:46 | NUR ---
PT AOX4, DENIES PAIN, SLEEPING UPON ENTRY, INSULIN AT DINNER TIME GIVEN, PT PLEASANT, UNEVENTFUL SHIFT, HOPEFUL TO MOVE OUT OF ISOLATION TOMORROW
[2021-05-03 20:49] VITALS: BP 138/57; PULSE 87; TEMP 97.9
[2021-05-04 00:07] VITALS: BP 141/59; PULSE 85; TEMP 98.6
[2021-05-04 04:28] VITALS: BP 119/49; PULSE 80; TEMP 99.5
--- NOTE | 2021-05-04 06:45 | NUR ---
REPORT CALLED TO TONY IN IPR, PATIENT BEING TRANSFERRED TO ROOM 338, ALL QUESTIONS ANSWERED
--- NOTE | 2021-05-04 10:15 | NUR ---
Pt. progressing w/ plan of care. Pt. experienced difficulty swallowing her medications whole. This RN gave her medications crushed with pudding instead of giving them whole. Pt. to work with Alan from PT and move rooms to IPR unit. RN taking over Talia jesus and this RN let her know.
--- NOTE | 2021-05-04 10:35 | NUR ---
Pt. went to therapy and transferred to IPR unit. Report provided to STANTON Melgar.
--- NOTE | 2021-05-04 13:53 | NUR ---
Patient transferred from medical surgical to room 338. All of patient's personal belongings was put in room. Patient is lethargic and falls asleep between care, eating, or administration of medication. Call light and bedside table are within reach. Will continue to monitor patient throughout shift.
--- NOTE | 2021-05-04 17:20 | NUR ---
Patient takes pills crushed and in applesauce or pudding. The medical nurse called and reported this after patient had already been transferred to [facility]
[2021-05-04 18:09] VITALS: BP 140/56; PULSE 76; TEMP 97.9
--- NOTE | 2021-05-04 20:30 | NUR ---
PT RESTING IN BED WITH HOB ELEVATED. PT SLOW TO RESPOND. DOESNT REPOND APPROPRIATEY TO QUESTIONS. KNOWS HER NAME. HS MEDS CRUSHED IN APPLESAUCE. BILAT INT NEEDLES FLUSH WELL. WEARS BRIEFS FOR INCONTINENCE. CALL LIGHT IN REACH. BED ALARM SET.
--- NOTE | 2021-05-05 00:58 | NUR ---
PT INCONTINENT OF URINE. CHANGED LINENS. PT AWAKE BUT LETHARGIC. NO CHANGE.
[2021-05-05 05:15] VITALS: BP 153/79; PULSE 68; TEMP 97.8
--- NOTE | 2021-05-05 07:34 | NUR ---
Report received from STANTON Titus. Patient is sleeping in bed. Call light and bedside table are within reach. Will continue to monitor patient throughout shift.
[2021-05-05 17:27] VITALS: BP 135/55; PULSE 110; TEMP 97.8
[2021-05-05 17:58] VITALS: BP 142/58; PULSE 79; TEMP 98.7
--- NOTE | 2021-05-05 20:57 | NUR ---
PT MAKES EYE CONTACT WHEN SPOKEN TO. ANSWERS SIMPLE QUESTIONS. LEFT EYE LID HALF CLOSED. STILL SOMEWHAT LETHARGIC. DENIES PAIN. CALL LIGHT IN REACH. BED ALARM SET.
[2021-05-06 05:36] VITALS: BP 141/56; PULSE 71; TEMP 97.8
[2021-05-06 18:30] VITALS: BP 159/77; PULSE 84; TEMP 97.5
--- NOTE | 2021-05-07 05:15 | NUR ---
PT REMAIN CONFUSED,INCONTINET OF BOWELS AND BALLDER. BED IN LOCKED POSTION CALL LIGHT WITHIN REACH
[2021-05-07 05:36] VITALS: BP 142/63; PULSE 73; TEMP 97.7
--- NOTE | 2021-05-07 07:40 | NUR ---
Report received from STANTON Cordova. Patient is sleeping in bed. Call light and bedside table are within reach. Will continue to monitor throughout shift.
[2021-05-07 18:12] VITALS: BP 115/58; PULSE 61
[2021-05-08 04:52] VITALS: BP 151/59; PULSE 69; TEMP 98.2
--- NOTE | 2021-05-08 05:05 | NUR ---
PT COMPLIANT WITH MEDS AND CARE THOUGH VERY DISORIENTED. MEDS CRUSHED. INCONTINENT OF URINE. REPOSITIONED APPROXIMATELY Q2 HOURS.
--- NOTE | 2021-05-08 06:50 | NUR ---
Report received from STANTON Jo. Patient is in bed sleeping call light and bedside table are within reach. Will continue to monitor patient throughout shift.
--- NOTE | 2021-05-08 16:11 | NUR ---
Rn verbalizes concerns of how much this patient is getting out of therapy. Patient isn't working with therapy and mental decline since the start of IPR. RN to bring this up with physician tomorrow.
[2021-05-08 18:14] VITALS: BP 156/66; PULSE 88; TEMP 98.2
[2021-05-09 04:27] VITALS: BP 133/65; PULSE 73; TEMP 96.5
--- NOTE | 2021-05-09 04:38 | NUR ---
RESTING QUIETLY/SLEEPING. NO N/V. INCONTINENT OF URINE. COMPLIANT WITH MEDICATIONS. PT MORE VERBAL TONIGHT.
--- NOTE | 2021-05-09 06:53 | NUR ---
Report received from STANTON Jo. Patient is sleeping in bed. Call light and bedside table are within reach. Will continue to monitor patient throughout shift.
--- NOTE | 2021-05-09 10:00 | NUR ---
Patient's is at bedside.
--- NOTE | 2021-05-09 14:44 | NUR ---
Prover met with patient and patient's , Nick to discuss discharge planning. SW advised that at this time, the team feels patient needs additional rehab before returning home. Patient and Nick are in agreement and their preferences for rehab are 1) [facility] and 2) [facility]. SW faxed both referrals and will follow up with the facilities.
[2021-05-09 17:07] VITALS: BP 131/59; PULSE 71; TEMP 98.8
--- NOTE | 2021-05-09 17:56 | NUR ---
This nurse has noticed a decline in patient's physical functioning and cognition at least for the last 72 hours. Patient appears to be more confused. The patient has to be heavily cued to perform ADLs and some times her hands actually have to be physically moved to complete ADLs i.e. placing toothbrush or eating utensils in hand and encouraging her to brush teeth or eat. Patient is cooperative with care.
--- NOTE | 2021-05-09 22:02 | NUR ---
PT IS LAYING IN BED, RESPONDS SLOWLY TO QUESTIONS. PT HAS VERY FLAT AFFECT. PT TOOK ALL MEDICATIONS WITH APPLESAUCE, DRANK WATER IN BETWEEN BITES. PT BRIEF IS DRY, WILL CONTINUE TO MONITOR.
[2021-05-10 06:02] VITALS: BP 147/54; PULSE 69; TEMP 98.2
--- NOTE | 2021-05-10 06:22 | NUR ---
PT HAD AN UNEVENTFUL NIGHT. PT WAS INCONTINENT OF URINE, NO BOWEL MOVEMENT. PT DENIES PAIN, ANSWERED QUESTIONS APPROPRIATELY, DID NOT ADD TO CONVERSATION. PT COOPERATIVE AND TOOK ALL MEDICATIONS.
--- NOTE | 2021-05-10 14:35 | NUR ---
Dairy Equipment Repairer spoke with Patrick at [facility] who advised he can accept patient tomorrow. Patient likely to discharge tomorrow. SW updated Magaly, ANGEL LUIS Director as well as patient's , Nick.
[2021-05-10 17:24] VITALS: BP 129/63; PULSE 93; TEMP 97.8
--- NOTE | 2021-05-10 18:15 | NUR ---
Pt remained confused through the day. This morning she was very drowsy and needed much direction to complete any tasks, at times requiring staff to physically move arms where needed for standing/ambulation. Pt did not appear to be or voice any issues d/t pain. Able to feed herself if meals were set up for her.
--- NOTE | 2021-05-10 22:57 | NUR ---
Patient assessed around 1999. Alert and oriented to self only. High fall risk precautions in place. Denies pain and discomfort. Peripheral INT to left forearm and right AC. LS CTA. HRR. Capillary refill less than 3 seconds. Non-tenting skin turgor. BSAx4. Abdomen soft and non-tender. No edema In bed with call light within reach. Bed alarm on.
[2021-05-11 06:00] VITALS: BP 152/59; PULSE 74; TEMP 97.5
--- NOTE | 2021-05-11 06:14 | NUR ---
Patient has been resting in bed with call light within reach. Patient has been checked, changed, and repositioned in bed during the night. Incontinent of bladder. Perineal hygiene care provided. Took medications crushed in applesauce. Bed alarm on.
--- NOTE | 2021-05-11 07:23 | NUR ---
Report received from STANTON Zimmer. Patient is sleeping in bed. Call light and bedside table are within reach. Will continue to monitor patient throughout shift.
[2021-05-11] MEDS ORDERED: DULCOLAX S10 MG/SUPP RC (11:27)
[2021-05-11] MEDS ORDERED: MIRALAX PA17 GM/Dose PO (11:27)
[2021-05-11] MEDS ORDERED: SENOKOT S 50 MG1 TAB PO (11:28)
[2021-05-11] MEDS ORDERED: NOVLOG SQ (11:29)
[2021-05-11] MEDS ORDERED: LEVEMIR100 U/ML SQ (11:29)
[2021-05-11] MEDS ORDERED: VITAMIN D31000 I1 PO (11:30)
--- NOTE | 2021-05-11 14:03 | NUR ---
Patient ready for discharge to [facility] today. MARGARETTE set transport time for 1230. MARGARETTE provided transport time to RN and to patient's , Nick. MARGARETTE faxed discharge orders to Patrick at [facility]. Patrick advised they would not need an additional covid test for patient. Discharge Plan: [facility]
--- NOTE | 2021-05-12 13:11 | NUR ---
Discharge QIM scores were reviewed by the team. Code of 5 chosen for eating was determined by team discussion to be the most usual performance for this patient during the assessment period. Code of 3 chosen for toilet hygiene was determined by team discussion to be the most usual performance for this patient during the assessment period. Code of 3 chosen for toileting transfers was determined by team discussion to be the most usual performance for this patient during the assessment period. Code of 2 chosen for shower/bathe self was determined by team discussion to be the most usual performance before interventions for this patient during the assessment period. Code of 3 chosen for lower body dressing was determined by team discussion to be the most usual performance for this patient during the assessment period. Code of 3 chosen for putting on/taking off footwear was determined by team discussion to be the most usual performance for this patient during the assessment period. Code of 4 chosen for sit to lying was determined by team discussion to be the most usual performance before interventions for this patient during the assessment period. Code of 4 chosen for lying to sitting on side of bed was determined by team discussion to be the most usual performance for this patient during the assessment period. Code of 3 for sit to stand was determined by team discussion to be the most usual performance for this patient during the assessment period. Code of 4 chosen for walk 150 feet was determined by team discussion to be the most usual performance for this patient during the assessment period.--PD Jl
== END 2021-05-11 12:30 | DRG 947 ==
LOC: MEDICAL 14:47
PROVIDERS: Internal Medicine; Physician Assistant; Student in an Organized Health Care Education/Training Program; ADMIT Physical Medicine & Rehabilitation Sports Medicine
DX: R53.81 Other malaise (principal); U07.1 COVID-19; N39.0 Urinary tract infection, site not specified; E10.40 Type 1 diabetes mellitus with diabetic neuropathy, unspecified; E10.319 Type 1 diabetes mellitus with unspecified diabetic retinopathy without macular edema; E10.42 Type 1 diabetes mellitus with diabetic polyneuropathy; K31.84 Gastroparesis; E10.649 Type 1 diabetes mellitus with hypoglycemia without coma; I25.10 Atherosclerotic heart disease of native coronary artery without angina pectoris; E87.6 Hypokalemia; E03.9 Hypothyroidism, unspecified; I49.3 Ventricular premature depolarization; I10 Essential (primary) hypertension; M81.0 Age-related osteoporosis without current pathological fracture; H02.402 Unspecified ptosis of left eyelid; K59.00 Constipation, unspecified; F03.90 Unspecified dementia, unspecified severity, without behavioral disturbance, psychotic disturbance, mood disturbance, and anxiety; H40.9 Unspecified glaucoma; E78.5 Hyperlipidemia, unspecified; Z79.899 Other long term (current) drug therapy; Z79.82 Long term (current) use of aspirin; Z79.2 Long term (current) use of antibiotics; Z86.73 Personal history of transient ischemic attack (TIA), and cerebral infarction without residual deficits; Z73.6 Limitation of activities due to disability; Z90.710 Acquired absence of both cervix and uterus; Z88.0 Allergy status to penicillin; Z88.1 Allergy status to other antibiotic agents; Z88.5 Allergy status to narcotic agent
CPT/HCPCS: 99223; 99231-AI; 99232-AI; 99233-AI; A9585; J0692; J1650; J1815; J2405; J7030; J7040; J8540

== ENCOUNTER → 2021-05-28 | Outpatient (CLI) | payer MEDICARE, OTHER ==
[~2021-05-28] MED LIST changes: +DULCOLAX S10 MG/SUPP RC; +LEVEMIR100 U/ML SQ; +MIRALAX PA17 GM/Dose PO; +NEURONTIN300 MG/CAP PO; +NOVLOG SQ; +OMNICEF 300MG300 MG PO; +RT Albuterol HFA MDI IH; +SENOKOT S 50 MG1 TAB PO; +VITAMIN D31000 I1 PO
[2021-05-28 18:29] LABS: COLLECTION METHOD CLEAN CATCH
[2021-05-28 18:49] LABS: BUDDING YEAST Present (NOT PRESENT); MUCOUS Present (NOT PRESENT); PH 5 (5-8); URINE APPEARANCE Cloudy (CLEAR/HAZY); URINE BACTERIA Occasional /hpf (NONE SEEN); URINE BILIRUBIN Negative (NEGATIVE); URINE BLOOD 1+ (NEGATIVE); URINE COLOR Yellow (YELLOW); URINE GLUCOSE 3+ (NEGATIVE); URINE KETONE Negative (NEGATIVE); URINE LEUKOCYTE ESTERASE 3+ (NEGATIVE); URINE NITRATE Negative (NEGATIVE); URINE PROTEIN(semi-quant) Negative (NEGATIVE); URINE UROBILINOGEN Negative (NEGATIVE)
== END ==
LOC: ZCOL.LAB 17:44
PROVIDERS: Internal Medicine
DX: N39.0 Urinary tract infection, site not specified (principal)